=== PATIENT | male | born 2000 | race Two or more races ===

== ENCOUNTER → 2021-08-24 | Outpatient (CLI) | payer OTHER | END | disposition home or self-care (01) | LOC: PPH VACUNA 01:50 | PROVIDERS: ATTEND Emergency Medicine Pediatric Emergency Medicine | DX: Z23 Encounter for immunization (principal) ==

== ENCOUNTER 2022-06-07 09:02 | Outpatient (CLI) | payer OTHER | END 2022-06-07 09:12 | disposition home or self-care (01) | LOC: PPH VACUNA 09:02 | PROVIDERS: ATTEND Emergency Medicine Pediatric Emergency Medicine | DX: Z23 Encounter for immunization (principal) ==